=== PATIENT | male | born 1970 | race Hispanic/Latino ===

== ENCOUNTER 2019-01-02 13:48 | Emergency (ER) | payer OTHER ==
[~2019-01-02] VITALS: Ht 165.1 cm; Wt 86.0 kg
[2019-01-02 15:33] VITALS: BP 149/89
== END 2019-01-02 15:33 | disposition home or self-care (01) | DRG 950 ==
LOC: ED 13:48
DX: S50.02XD Contusion of left elbow, subsequent encounter (principal); M25.522 Pain in left elbow; V43.52XD Car driver injured in collision with other type car in traffic accident, subsequent encounter; W22.11XD Striking against or struck by driver side automobile airbag, subsequent encounter

== ENCOUNTER 2021-01-09 15:23 | Emergency (ER) | payer OTHER ==
[2021-01-09] MEDS ORDERED: DECADRON6 MG PO (17:14)
[2021-01-09] MEDS ORDERED: AZITHROMYCIN500 MG PO (17:14)
[2021-01-09 17:51] VITALS: BP 138/87
== END 2021-01-09 17:51 | disposition home or self-care (01) | DRG 177 ==
LOC: ED 15:23
DX: U07.1 COVID-19 (principal); J12.82 Pneumonia due to coronavirus disease 2019

== ENCOUNTER 2021-01-13 16:28 | Inpatient (IN) | payer SELFPAY ==
[~2021-01-13] VITALS: Ht 165.1 cm; Wt 65.0 kg
[~2021-01-13 16:28] MED LIST: AZITHROMYCIN500 MG PO; DECADRON6 MG PO
--- NOTE | 2021-01-13 16:35 | NUR ---
TO ROOM FOR TRIAGE
--- NOTE | 2021-01-13 17:00 | NUR ---
PATIENT RESTING QUIETLY,MONITORING CONTINUES
[2021-01-13 17:23] LABS: IMMATURE GRANULOCYTES 1.1 % (0.0-5.0); MEAN CELL VOLUME 89.2 fL CALC (80.0-100.0); MEAN CORPUSCULAR HGB 28.2 pG CALC (26.0-32.0); MEAN CORPUSCULAR HGB CONC 31.6 g/dL CAL (32.0-36.0); NEUT# 17.97 thou/uL (1.82-7.42); RED BLOOD COUNT 6.11 mill/uL (4.70-6.10); RED CELL DISTRI WIDTH 13.1 % (11.5-15.5)
[2021-01-13 17:25] LABS: HEMATOCRIT 54.5 % (39.0-50.0); HEMOGLOBIN 17.2 g/dl (14.0-18.0)
[2021-01-13 17:40] LABS: ALBUMIN 4.5 g/dL (3.2-5.0); CREATININE 1.5 mg/dL (0.7-1.3)
[2021-01-13 17:51] LABS: BILIRUBIN, TOTAL 0.5 mg/dL (0.0-1.4); POTASSIUM 5.8 mmol/l (3.5-5.1); TOTAL PROTEIN 9.3 g/dL (6.3-8.2)
--- NOTE | 2021-01-13 18:14 | NUR ---
RT AT BEDSIDE
--- NOTE | 2021-01-13 18:30 | NUR ---
PATIENT REPOSITIONED, WAR, BLANKET GIVEN.
--- NOTE | 2021-01-13 18:57 | NUR ---
PATIENT TO ROOM 10, REPORT TO APROL RN. GLUCOSE RESULTS 800 + DKA PROTOCOL COMMENCED. SECOND IV SITE COMMENCED.
--- NOTE | 2021-01-13 19:15 | NUR ---
RECIEVED REPORT FORM ELIAS BULL, WILL ASSUME CARE OF PATIENT.
--- NOTE | 2021-01-13 22:10 | NUR ---
GLUCOSE 443, WILL MAINTAIN INSULIN AT 5UNITS PER HOUR
--- NOTE | 2021-01-13 23:20 | NUR ---
DR ROUSE IN ROOM WITH PATIENT PLACING CENTRAL LINE. LEFT SUBCLAVICULAR CENTRAL LINE PLACED USING STERILE TECHNIQUE. PLACEMENT TO BE VERIFIED BY RADIOLOGY.
--- NOTE | 2021-01-13 23:37 | NUR ---
RADIOLOGY ARRIVED TO VERIFY LINE PLACEMENT.
[2021-01-13 23:49] LABS: ALKALINE PHOSPHATASE 85 u/l (38-126); BUN 23 mg/dL (9-20); BUN/CREATININE RATIO 34 (12-20 (CALC)); CREATININE 0.7 mg/dL (0.7-1.3); GFR > 60 ML/MIN (>=60 (CALC)); GFR FOR AFR.AMER. > 60 ML/MIN (>=60 (CALC)); SGOT/AST 18 u/l (17-59)
[2021-01-13 23:53] LABS: ALBUMIN 3.3 g/dL (3.2-5.0); ANION GAP 26 (6-22 (CALC)); BILIRUBIN, TOTAL 0.2 mg/dL (0.0-1.4); CARBON DIOXIDE 7 mmol/l (22-30); CHLORIDE 118 mmol/l (95-108); POTASSIUM 4.6 mmol/l (3.5-5.1); SODIUM 146 mmol/l (137-146); TOTAL PROTEIN 6.9 g/dL (6.3-8.2)
--- NOTE | 2021-01-13 23:58 | NUR ---
INSULIN DOSE RATE CHANGED TO 4 UNITS PER HOUR PER INSULIN DRIP PROTOCOL AND GLUCOSE LEVEL OF 352.
--- NOTE | 2021-01-14 01:06 | NUR ---
GLUCOSE 361, INSULIN DRIP WILL REMAIN AT 4 UNITS/HOUR PER PROTOCOL.
--- NOTE | 2021-01-14 02:08 | NUR ---
GLUCOSE 328, PT WILL REMAIN AT 4 UNITS/HOUR INSULIN PER PROTOCOL.
--- NOTE | 2021-01-14 03:16 | NUR ---
GLUCOSE 313, PT WILL REMAIN AT 4 UNITS/HOUR PER PROTOCOL. PT BEDDING CHANGED, REPOSITIONED. Reassessment of patient completed. No distress noted.
--- NOTE | 2021-01-14 04:00 | NUR ---
URINE OUTPUT 850mL, INDWELLING SOLO CATHETER, CLEAR, YELLOW.
--- NOTE | 2021-01-14 04:00 | NUR ---
GLUCOSE 272, INSULIN DECREASED TO 3 UNITS/HOUR PER PROTOCOL. LABS DRAWN AND SENT TO LAB.
[2021-01-14 04:45] LABS: ALBUMIN 3.3 g/dL (3.2-5.0); ALKALINE PHOSPHATASE 80 u/l (38-126); BUN 20 mg/dL (9-20); BUN/CREATININE RATIO 36 (12-20 (CALC)); CHLORIDE 115 mmol/l (95-108); CREATININE 0.5 mg/dL (0.7-1.3); GFR > 60 ML/MIN (>=60 (CALC)); GFR FOR AFR.AMER. > 60 ML/MIN (>=60 (CALC)); POTASSIUM 4.4 mmol/l (3.5-5.1); SGOT/AST 18 u/l (17-59); SODIUM 144 mmol/l (137-146); TOTAL PROTEIN 6.7 g/dL (6.3-8.2)
[2021-01-14 04:48] LABS: ANION GAP 19 (6-22 (CALC)); BILIRUBIN, TOTAL 0.3 mg/dL (0.0-1.4); CARBON DIOXIDE 14 mmol/l (22-30)
--- NOTE | 2021-01-14 05:01 | NUR ---
GLUCOSE 256 VIA ACCUCHECK, INSULIN WILL REMAIN AT 3 UNITS PER HOUR PER PROTOCOL.
--- NOTE | 2021-01-14 06:02 | NUR ---
GLUCOSE 263, INSULIN DRIP WILL REMAIN AT 3 UNITS/HOUR PER PROTOCOL. Reassessment of patient completed. No distress noted. RESTING COMFORTABLY, RESPIRATIONS EVEN, UNLABORED.
--- NOTE | 2021-01-14 07:00 | NUR ---
PATIENT REPORT FROM ML PEREZ.
--- NOTE | 2021-01-14 07:11 | NUR ---
GLUCOSE 261, INSULIN REMAINS AT 3 UNITS/HOUR PER PROTOCOL.
[2021-01-14 07:17] VITALS: BP 110/70
[2021-01-14 07:58] LABS: ALBUMIN 2.9 g/dL (3.2-5.0); ALKALINE PHOSPHATASE 72 u/l (38-126); ANION GAP 17 (6-22 (CALC)); BILIRUBIN, TOTAL 0.2 mg/dL (0.0-1.4); BUN 18 mg/dL (9-20); BUN/CREATININE RATIO 37 (12-20 (CALC)); CARBON DIOXIDE 16 mmol/l (22-30); CHLORIDE 115 mmol/l (95-108); CREATININE 0.5 mg/dL (0.7-1.3); GFR > 60 ML/MIN (>=60 (CALC)); GFR FOR AFR.AMER. > 60 ML/MIN (>=60 (CALC)); POTASSIUM 4.2 mmol/l (3.5-5.1); SGOT/AST 19 u/l (17-59); SODIUM 143 mmol/l (137-146); TOTAL PROTEIN 6.2 g/dL (6.3-8.2)
--- NOTE | 2021-01-14 08:00 | NUR ---
PATIENT RESTING IN STRETCHER IN NAD AND DENIES ANY NEEDS AT THIS TIME. INSULIN DRIP INFUSING AT 3 UNITS PER HOUR.
[2021-01-14 08:17] VITALS: BP 116/76
[2021-01-14 08:18] LABS: URINE BILIRUBIN - DIPSTICK NEGATIVE (NEGATIVE); URINE BLOOD DIPSTICK SMALL (NEGATIVE); URINE COLOR YELLOW; URINE GLUCOSE - DIPSTICK >=1000 mg/dL (NEGATIVE); URINE KETONE >=80 mg/dL (NEGATIVE); URINE LEUK ESTERASE NEGATIVE (NEGATIVE); URINE PH 5.5 (4.5-8.0); URINE PROTEIN - DIPSTICK TRACE mg/dL (NEG-TRACE); URINE SPECIFIC GRAVITY 1.025; URINE UROBILINOGEN - DIPSTICK 0.2 E.U./dL (0.2)
[2021-01-14 08:19] LABS: URINE NITRITE - DIPSTICK NEGATIVE (Negative)
[2021-01-14 08:29] LABS: URINE RBC 0-2 RBC/hpf (0-5)
--- NOTE | 2021-01-14 09:00 | NUR ---
BGL 378, INSULIN DRIP INCREASED TO 4 UNITS PER HOUR. PATIENT DENIES ANY NEEDS.
[2021-01-14 09:15] VITALS: BP 119/77
--- NOTE | 2021-01-14 10:00 | NUR ---
PATIENT REPORT TO ML ADAMS.
--- NOTE | 2021-01-14 10:10 | NUR ---
PT RESTING ON STRETCHER. CENTRAL LINE PATENT TO LT CHEST. L/RAC SITES HEALTHY. INSULING DRIP IN PROGRESS AND IV FLUIDS. SKIN WARM AND DRY. PT A&OX3. SATS 100% RA RESP EVEN AND UNLABORED. SOLO CATH PATENT TO BSDB DRAINING DARK YELLOW URINE APPROX 100ML IN BAG.
--- NOTE | 2021-01-14 10:30 | NUR ---
DR SUTTON AT BEDSIDE.
[2021-01-14 11:17] VITALS: BP 105/69
[2021-01-14 12:05] LABS: ALBUMIN 2.9 g/dL (3.2-5.0); ALKALINE PHOSPHATASE 73 u/l (38-126); ANION GAP 15 (6-22 (CALC)); BUN 17 mg/dL (9-20); BUN/CREATININE RATIO 35 (12-20 (CALC)); CARBON DIOXIDE 17 mmol/l (22-30); CHLORIDE 113 mmol/l (95-108); CREATININE 0.5 mg/dL (0.7-1.3); GFR > 60 ML/MIN (>=60 (CALC)); GFR FOR AFR.AMER. > 60 ML/MIN (>=60 (CALC)); POTASSIUM 3.9 mmol/l (3.5-5.1); SGOT/AST 17 u/l (17-59); SODIUM 142 mmol/l (137-146); TOTAL PROTEIN 6.1 g/dL (6.3-8.2)
--- NOTE | 2021-01-14 12:30 | NUR ---
IV INSULIN DRIP COMPLETED PER .
[2021-01-14 12:42] LABS: BILIRUBIN, TOTAL 0.4 mg/dL (0.0-1.4)
--- NOTE | 2021-01-14 12:43 | NUR ---
ACCUCHECK 1230 RESULT 240
[2021-01-14 13:28] LABS: IMMATURE GRANULOCYTES 0.5 % (0.0-5.0); MEAN CELL VOLUME 87.6 fL CALC (80.0-100.0); MEAN CORPUSCULAR HGB 27.8 pG CALC (26.0-32.0); MEAN CORPUSCULAR HGB CONC 31.8 g/dL CAL (32.0-36.0); NEUT# 11.05 thou/uL (1.82-7.42); RED BLOOD COUNT 4.82 mill/uL (4.70-6.10); RED CELL DISTRI WIDTH 13.9 % (11.5-15.5)
[2021-01-14 13:30] LABS: HEMATOCRIT 42.2 % (39.0-50.0); HEMOGLOBIN 13.4 g/dl (14.0-18.0)
--- NOTE | 2021-01-14 14:12 | NUR ---
report provided to ying posada in icu. advised of all events and attachments, meds
[2021-01-14 16:31] LABS: ALBUMIN 2.8 g/dL (3.2-5.0); ALKALINE PHOSPHATASE 66 u/l (38-126); ANION GAP 13 (6-22 (CALC)); BILIRUBIN, TOTAL 0.3 mg/dL (0.0-1.4); BUN 17 mg/dL (9-20); BUN/CREATININE RATIO 40 (12-20 (CALC)); CARBON DIOXIDE 19 mmol/l (22-30); CHLORIDE 111 mmol/l (95-108); CREATININE 0.4 mg/dL (0.7-1.3); GFR > 60 ML/MIN (>=60 (CALC)); GFR FOR AFR.AMER. > 60 ML/MIN (>=60 (CALC)); POTASSIUM 3.8 mmol/l (3.5-5.1); SGOT/AST 20 u/l (17-59); SODIUM 139 mmol/l (137-146)
--- NOTE | 2021-01-14 18:30 | NUR ---
REPORT PROVIDED TO SHARMAINE NURSE ON MEDSURG. ADVISED OF ALL EVENTS, ATTACHMENTS AND MEDS. PT TO ROOM 284 VIA STRETCHER IN STABLE CONDITION FROM ED OVERFLOW.
--- NOTE | 2021-01-14 18:32 | NUR ---
REPORT RECEIVED FROM ML PIRES
[2021-01-14 18:35] VITALS: BP 141/84
--- NOTE | 2021-01-14 18:35 | NUR ---
PT ARRIVED TO MED/SURG ROOM 284 IN STABLE CONDITION VIA HOSPITAL BED ACCOMPANIED BY ML NG;PT A&O X3, MOSTLY RWANDAN SPEAKING;ORIENTED TO ROOM AND CALL LIGHT SYSTEM AND VERBALIZES UNDERSTANDING;PT DENIES ANY CURRENT PAIN OR DISCOMFORTS,PAIN SCALE AND REPORTING EDUCATED;RESPIRATIONS EVEN AND UNLABORED ON RA;RT SUBCLAVIAN TL INFUSING NS @ 150ML/HR,SITE APPEARS HEALTHY;TELE MONITORING IN PLACE;PT DENIES ANY ADDITIONAL NEEDS AND IS ENCOURAGED TO CALL FOR ASSISTANCE IF NEEDED;PT REMAINS IN AIR/CONTACT PRECAUTIONS DUE TO COVID19 DX;CFALL PRECAUTIONS IN PLACE WITH CALL LIGHT IN REACH;WILL CONTINUE TO MONITOR
--- NOTE | 2021-01-14 20:00 | NUR ---
PHYSICAL ASSESMENT COMPLETE. PT CURRENTLY DENIES PAIN OR DISCOMFORT. SCHEDULED MEDICATIONS AND PRN MEDICATION ADMINISTERED, SEE E-MAR. PT DENIES ANY NEEDS AT THIS TIME. PLAN OF CARE REVIEWED, PT DENIES QUESTIONS, VERBALIZES UNDERSTANDING. ITEMS WITHIN REACH, BED LOCKED IN LOW POSITION W/ BEDRAILS UP X2. CALL SUAZO WITHIN REACH, AGREES TO CALL PRN.
[2021-01-14 20:12] VITALS: BP 115/68
[2021-01-14 20:24] LABS: ALBUMIN 2.7 g/dL (3.2-5.0); ALKALINE PHOSPHATASE 70 u/l (38-126); ANION GAP 10 (6-22 (CALC)); BILIRUBIN, TOTAL 0.3 mg/dL (0.0-1.4); BUN 15 mg/dL (9-20); BUN/CREATININE RATIO 29 (12-20 (CALC)); CARBON DIOXIDE 22 mmol/l (22-30); CHLORIDE 110 mmol/l (95-108); CREATININE 0.5 mg/dL (0.7-1.3); GFR > 60 ML/MIN (>=60 (CALC)); GFR FOR AFR.AMER. > 60 ML/MIN (>=60 (CALC)); POTASSIUM 3.6 mmol/l (3.5-5.1); SGOT/AST 17 u/l (17-59); SODIUM 138 mmol/l (137-146); TOTAL PROTEIN 5.7 g/dL (6.3-8.2)
--- NOTE | 2021-01-15 00:28 | NUR ---
PT LAYING IN BED WITH EYES CLOSED, APPEARS TO BE SLEEPING, APPEARS COMFORTABLE AND IN NO DISTRESS. RESPIRATIONS REGULAR AND UNLABORED. ITEMS REMAIN WITHIN REACH, CALL SUAZO REMAINS WITHIN REACH. BED REMAINS LOCKED AND IN LOW POSITION WITH BEDRAILS UP X2. WILL CONTINUE TO MONITOR.
[2021-01-15 00:40] VITALS: BP 124/83
--- NOTE | 2021-01-15 04:22 | NUR ---
PT RESTING IN BED, PT LETHARGIC AND WEAK, RESP EVEN AND UNLABORED. PT VOICES NO NEEDS OR COMPLAINTS AT THIS TIME. CALL LIGHT IN REACH, CONTINUE TO MONITOR.
[2021-01-15 05:02] VITALS: BP 117/74
[2021-01-15 05:27] LABS: HEMATOCRIT 38.8 % (39.0-50.0); HEMOGLOBIN 12.8 g/dl (14.0-18.0); MEAN CELL VOLUME 85.1 fL CALC (80.0-100.0); MEAN CORPUSCULAR HGB 28.1 pG CALC (26.0-32.0); RED BLOOD COUNT 4.56 mill/uL (4.70-6.10); RED CELL DISTRI WIDTH 13.5 % (11.5-15.5)
[2021-01-15 05:40] LABS: ANION GAP 8 (6-22 (CALC)); BUN 14 mg/dL (9-20); BUN/CREATININE RATIO 34 (12-20 (CALC)); CARBON DIOXIDE 24 mmol/l (22-30); CHLORIDE 112 mmol/l (95-108); CREATININE 0.4 mg/dL (0.7-1.3); GFR > 60 ML/MIN (>=60 (CALC)); GFR FOR AFR.AMER. > 60 ML/MIN (>=60 (CALC)); POTASSIUM 3.3 mmol/l (3.5-5.1); SODIUM 140 mmol/l (137-146)
--- NOTE | 2021-01-15 08:00 | NUR ---
Patient alert, verbal, able to make needs known--extremely tired, appears to be unmotivated--very sleepy. Tolerates meds well whole--FSBS as ordered with SSI prn--no s/s of glycemic reaction noted. Garcia patent and draining clear yellow urine to BSB without diffculty. Cont of bowel--one assist with toileting. Poor appetite--fluids encouraged. One time dose pf KCL given per MS order this AM. Triple lumen port patent to left subclavian area--flushes well--site unremarkable. Cont on IV ABT therapy related to COVID pneumonia with no side effects noted--afebrile. Telemetry in place--SR @ 77. Will cont to monitor for any further changes.
[2021-01-15 11:09] VITALS: BP 146/68
--- NOTE | 2021-01-15 12:00 | NUR ---
Patient resting soubdly in bed with eyes closed at this tme--fair appetite for lunch this shift--not yet voided since Dcing downs--will continue to monitor fir urine output--NS infusing @ 100mL/hr--tolerating fluids well at this time--PIV site patent to RAC--flushes well--site unremarkable.
--- NOTE | 2021-01-15 12:00 | NUR ---
22 gauge placed in right AC area times 1 attempt per RN JG--flushes well--patient toleraed procedure well--MD ordered to placed PIV site for fluid administration and to DC central line at this time--also orders to DC downs. Patient is aware of al new orders.
--- NOTE | 2021-01-15 12:40 | NUR ---
CENTRAL LINE REMOVED UNDER ASEPTIC TECHNIQUE AT THIS TIME. TIP FULLY INTACT AREA CLEANSED AND BIO PATCH PLACE WITH TEGADERM DRESSING. PATIENT EDUCATED ON SITE AND SITE INFECTION AT THIS TIME AND VERBALIZES UNDERSTANDING.
[2021-01-15 14:50] VITALS: BP 146/87
--- NOTE | 2021-01-15 16:00 | NUR ---
Patient voiding freely shane removal of downs this shift--no complaints offered. NS infusing @ 100mL/hr without difficulty--tolerating fluids well. PIV site patent to [facility] area--flushes well--site unremarkable. Telemetry in place with SR @ 61. No apparent distress noted.
[2021-01-15 19:00] VITALS: BP 132/73
[2021-01-16 04:00] VITALS: BP 123/79
--- NOTE | 2021-01-16 04:00 | NUR ---
PT RESTING IN BED, NO SIGNS OF DISTRESS NOTED, RESP EVEN AND UNLABORED. PT VOICES NO NEEDS OR COMPLAINTS AT THIS TIME. CALL LIGHT IN REACH, CONTINUE TO MONITOR.
[2021-01-16 05:36] LABS: HEMATOCRIT 40.7 % (39.0-50.0); HEMOGLOBIN 13.4 g/dl (14.0-18.0); MEAN CELL VOLUME 85.7 fL CALC (80.0-100.0); MEAN CORPUSCULAR HGB 28.2 pG CALC (26.0-32.0); MEAN CORPUSCULAR HGB CONC 32.9 g/dL CAL (32.0-36.0); RED BLOOD COUNT 4.75 mill/uL (4.70-6.10); RED CELL DISTRI WIDTH 13.2 % (11.5-15.5)
[2021-01-16 06:08] LABS: ANION GAP 9 (6-22 (CALC)); BUN 13 mg/dL (9-20); BUN/CREATININE RATIO 34 (12-20 (CALC)); CARBON DIOXIDE 23 mmol/l (22-30); CHLORIDE 112 mmol/l (95-108); CREATININE 0.4 mg/dL (0.7-1.3); GFR > 60 ML/MIN (>=60 (CALC)); GFR FOR AFR.AMER. > 60 ML/MIN (>=60 (CALC)); MAGNESIUM 2.2 mg/dL (1.6-2.3); POTASSIUM 3.3 mmol/l (3.5-5.1); SODIUM 140 mmol/l (137-146)
--- NOTE | 2021-01-16 08:00 | NUR ---
PATIENT ALERT, VEBRAL, ABLE TO MAKE NEEDS KNOWN. ABLE TO TOLERATE MEDS WELL WHOLE. FSBS ORDERED WITH SSI PRN--NO S/S OF GLYCEMIC REACTION NOTED. CONT ON IV ABT THERAPY RELATED TO COVID PNEUMONIA WITH NO SIDE EFFECTS NOTED--AFEBRILE. PIV SITE PATENT TO [facility] AREA--FLUSHES WELL--SITE UNREMARKABLE. NS INFUSING @ 100Ml/HR WITHOUT DIFFICULTY--TOLERATING FLUIDS WELL. POOR APPETITE NOTED--PATIENT STATES "IM JUST NOT HUNGRY." TAKING IN FLUID WELL AND ENCOURAGED BY STAFF MUCH POSSIBLE--ALSO STATES HE FEELS CONSTIPATED THIS AM---ENCOURAGED TO GET UP INTO CHAIR AT BEDSIDE AND MOVE AROUND SOME TO HOPEFULLY STIMULATE A BM--WILL CONT TO MONITOR--CONT OF BOWEL AND BLADDER--TAKES SELF INDEPNDENTLY TO AND FROM BR IN ROOM--ENCOURAGED TO CALL FOR ASSIST WHEN NEEDED--KNOWS OWN LIMITATIONS. LS DIMINISED THROUGHOUT ALL LOBES. NO COUGH NOTED. BS THIS AM--139--NO SSI REQUIRED. TELEMETRY IN PLACE WITH SR @ 68. INSTRUCTOR KNITTING IN THIS AM--ORDERS WRITTEN TO RECEIVE ANOTHER ONE TIME DOSE OF 40MEQ OF KCL--GIVEN ORDERED. DENIES PAIN. WILL CONT TO MONITOR FOR ANY FURTHER CHANGES.
--- NOTE | 2021-01-16 12:00 | NUR ---
PATIENT OUT OF BD IN CHAIR AT BEDSIDE AT THIS TIME--ORDERS TRANSCRIBED AND GIVEN THIS MORNING FOR A ONE TIME DOSE OF KCL 40MEQ--GIVEN AT 9AM ORDERED. MD IN TO SEE PATIENT AT BEDSIDE THIS SHIFT--AWAITING ORDERS TO DISCHARGE PATIENT HOME AT THIS TIME. 11AM BS OF 222--SSI ADMINISTERED ORDERED. WILL CONT TO MONITOR FOR ANY FURTHER CHANGES.
[2021-01-16 12:14] VITALS: BP 134/75
[2021-01-16] MEDS ORDERED: HUMALOG KW75 MG/25 K SC (13:28)
[2021-01-16] MEDS ORDERED: LEVAQUIN750 M1 PO (13:29)
--- NOTE | 2021-01-16 16:00 | NUR ---
Discharge instructions given. Patient verbalizes understanding of same. Discharged in stable condition via Wheelchair to Home with family. All belongings sent with pt. Diabetic teaching performed with patient at length--newly found diabetic. All scripts for supplies/meds sent with patient as well.
== END 2021-01-16 16:00 | disposition home or self-care (01) | DRG 637 ==
LOC: ED 16:28 → ED-I 19:23 → MS2 19:23
PROVIDERS: Emergency Medicine; Nurse Practitioner; ADMIT Hospitalist; ATTEND Hospitalist
PROC: 06JYXZZ Inspection of Lower Vein, External Approach (ICD-10-PCS; principal; 2021-01-13)
PROC: 02HV33Z Insertion of Infusion Device into Superior Vena Cava, Percutaneous Approach (ICD-10-PCS; 2021-01-13)
DX: E11.10 Type 2 diabetes mellitus with ketoacidosis without coma (principal); U07.1 COVID-19; J12.82 Pneumonia due to coronavirus disease 2019; E87.2 Acidosis; E87.5 Hyperkalemia; E86.0 Dehydration
CPT/HCPCS: J1956